=== PATIENT | female | born 1965 | race Caucasian/White ===

== ENCOUNTER 2018-09-05 19:51 | Emergency (ER) | payer MEDICAID ==
[~2018-09-05] VITALS: Ht 165.1 cm; Wt 67.8 kg
[~2018-09-05 19:51] MED LIST: ALPR-624 PO; IBUP-1984 PO; ZOC40T PO
[2018-09-05 20:31] VITALS: BP 169/69
[2018-09-05 21:39] LABS: URINE HCG NEGATIVE (NEG)
[2018-09-05] MEDS ORDERED: azithromycin 250mg tablet PO ONE (21:45)
[2018-09-05] MEDS ORDERED: CefTRIAXone 250MG IM Kit w/LIDOcaine IM ONE (21:45)
[2018-09-05] MEDS ORDERED: metroNIDAZOLE 500mg tablet PO ONE (21:45)
[2018-09-05 21:58] LABS: CLARITY,URINE SLIGHTLY CLOUDY (Clear); COLOR,URINE YELLOW (Yellow); GLUCOSE, URINE NEGATIVE (Neg); KETONES,URINE NEGATIVE (Neg); LEUKOCYTE ESTERASE ,URINE SMALL (Neg); NITRITES, URINE NEGATIVE (Neg); OCCULT BLOOD,URINE NEGATIVE (Neg); PH,URINE 5.5 (4.8-8.0); PROTEIN,URINE NEGATIVE (Neg); UA COLLECTION TYPE CLN CATCH MIDSTREAM; UROBILINOGEN,URINE 0.2 E.U/dL (0.2-1.0)
[2018-09-05 22:09] LABS: WBC,URINE 20-30 /HPF (0-4)
[2018-09-05 22:10] LABS: BACTERIA,URINE FEW /HPF (Neg); MUCUS STRANDS MODERATE /LPF (Neg); RBC,URINE 0-2 /HPF (0-2); SQUAMOUS EPITHELIAL CELL,UR FEW /LPF (FEW)
== END 2018-09-05 22:24 | disposition home or self-care (01) ==
LOC: ER 19:51
DX: N39.0 Urinary tract infection, site not specified (principal); A64 Unspecified sexually transmitted disease; I10 Essential (primary) hypertension; G89.29 Other chronic pain; Z79.899 Other long term (current) drug therapy
CPT/HCPCS: 36415; 81001; 81025; 87088; 87491; 87591; 96372; 99283; J0696; J3490